=== PATIENT | female | born 1955 | race Caucasian/White ===

== ENCOUNTER 2021-08-20 13:48 | Emergency (ER) | payer OTHER ==
[~2021-08-20] VITALS: Ht 147.3 cm; Wt 54.0 kg
[2021-08-20 14:22] LABS: HEMATOCRIT 42.4 % (37.0-47.0); HEMOGLOBIN 14.5 g/dl (12.0-16.0); IMMATURE GRANULOCYTES 0.2 % (0.0-5.0); MEAN CORPUSCULAR HGB 31.5 pG CALC (26.0-32.0); MEAN CORPUSCULAR HGB CONC 34.2 g/dL CAL (32.0-36.0); NEUT# 2.88 thou/uL (2.00-7.15); RED BLOOD COUNT 4.61 mill/uL (4.20-5.60); RED CELL DISTRI WIDTH 13.1 % (11.5-15.5)
[2021-08-20 14:44] LABS: ALBUMIN 4.2 g/dL (3.2-5.0); ALKALINE PHOSPHATASE 68 u/l (38-126); ANION GAP 8 (6-22 (CALC)); BILIRUBIN, TOTAL 0.2 mg/dL (0.0-1.4); BUN 11 mg/dL (8-23); BUN/CREATININE RATIO 16 (12-20 (CALC)); CARBON DIOXIDE 30 mmol/l (22-30); CHLORIDE 108 mmol/l (95-108); CREATININE 0.7 mg/dL (0.5-1.0); GFR > 60 ML/MIN (>=60 (CALC)); GFR FOR AFR.AMER. > 60 ML/MIN (>=60 (CALC)); POTASSIUM 3.7 mmol/l (3.5-5.1); SGOT/AST 21 u/l (9-36); SODIUM 142 mmol/l (137-146)
[2021-08-20 14:56] LABS: MYOGLOBIN 23 ng/mL (0 - 62)
[2021-08-20 15:01] LABS: URINE BILIRUBIN - DIPSTICK NEGATIVE (NEGATIVE); URINE BLOOD DIPSTICK TRACE-INTACT (NEGATIVE); URINE COLOR YELLOW; URINE GLUCOSE - DIPSTICK NEGATIVE (NEGATIVE); URINE KETONE NEGATIVE (NEGATIVE); URINE LEUK ESTERASE NEGATIVE (NEGATIVE); URINE PROTEIN - DIPSTICK NEGATIVE (NEG-TRACE); URINE UROBILINOGEN - DIPSTICK 0.2 E.U./dL (0.2)
[2021-08-20 15:02] LABS: URINE NITRITE - DIPSTICK NEGATIVE (Negative)
[2021-08-20 16:45] VITALS: BP 147/85
== END 2021-08-20 17:52 | disposition home or self-care (01) ==
LOC: ED 13:48
PROVIDERS: Nurse Practitioner
DX: R07.81 Pleurodynia (principal); I67.1 Cerebral aneurysm, nonruptured; J44.9 Chronic obstructive pulmonary disease, unspecified
CPT/HCPCS: Q9967

== ENCOUNTER 2021-09-24 12:23 | Emergency (ER) | payer OTHER ==
[~2021-09-24] VITALS: Ht 147.3 cm; Wt 60.0 kg
[2021-09-24 12:45] VITALS: BP 140/95
[2021-09-24 13:00] VITALS: BP 149/88
[2021-09-24 13:13] LABS: HEMATOCRIT 40.9 % (37.0-47.0); HEMOGLOBIN 14.3 g/dl (12.0-16.0); IMMATURE GRANULOCYTES 1.2 % (0.0-5.0); MEAN CELL VOLUME 89.3 fL CALC (80.0-100.0); MEAN CORPUSCULAR HGB 31.2 pG CALC (26.0-32.0); NEUT# 4.96 thou/uL (2.00-7.15); RED BLOOD COUNT 4.58 mill/uL (4.20-5.60); RED CELL DISTRI WIDTH 12.7 % (11.5-15.5)
[2021-09-24 13:16] VITALS: BP 103/85
[2021-09-24] MEDS ORDERED: LIPITOR10 M1 PO (13:17)
[2021-09-24] MEDS ORDERED: FLONASE AL50 MCG/ACT (13:17)
[2021-09-24] MEDS ORDERED: ASPIRIN81 MG PO (13:17)
[2021-09-24] MEDS ORDERED: [UNRECOGNIZED DRUG - OTHER] PO (13:18)
[2021-09-24] MEDS ORDERED: LEVETIRACETAM500 M1 PO (13:18)
[2021-09-24] MEDS ORDERED: LEVOCETIRIZINE D5 MG (13:18)
[2021-09-24] MEDS ORDERED: MIRTAZAPINE15 MG PO (13:19)
[2021-09-24] MEDS ORDERED: NURTEC75 MG (13:19)
[2021-09-24] MEDS ORDERED: MONTELUKAST SOD10 MG PO (13:19)
[2021-09-24] MEDS ORDERED: OMEPRAZOLE DR20 MG (13:19)
[2021-09-24] MEDS ORDERED: PLAVIX75 MG PO (13:20)
[2021-09-24] MEDS ORDERED: TRAZODONE50 MG PO (13:20)
[2021-09-24] MEDS ORDERED: PROAIR DIG108 MCG/AC (13:20)
[2021-09-24] MEDS ORDERED: PERCOCET 10/31 COMBO PO (13:20)
[2021-09-24] MEDS ORDERED: SINGULAIR10 MG PO (13:20)
[2021-09-24 13:30] VITALS: BP 120/83
[2021-09-24 13:35] LABS: ALBUMIN 4.6 g/dL (3.2-5.0); ALKALINE PHOSPHATASE 69 u/l (38-126); BUN 13 mg/dL (8-23); BUN/CREATININE RATIO 18 (12-20 (CALC)); CHLORIDE 104 mmol/l (95-108); CREATININE 0.7 mg/dL (0.5-1.0); GFR > 60 ML/MIN (>=60 (CALC)); GFR FOR AFR.AMER. > 60 ML/MIN (>=60 (CALC)); SGOT/AST 15 u/l (9-36); SODIUM 140 mmol/l (137-146); TOTAL PROTEIN 7.6 g/dL (6.3-8.2)
[2021-09-24 13:36] LABS: ANION GAP 16 (6-22 (CALC)); BILIRUBIN, TOTAL 0.3 mg/dL (0.0-1.4); CARBON DIOXIDE 23 mmol/l (22-30); POTASSIUM 2.9 mmol/l (3.5-5.1)
[2021-09-24 14:00] VITALS: BP 113/79
[2021-09-24 14:14] LABS: URINE BLOOD DIPSTICK TRACE-INTACT (NEGATIVE); URINE COLOR YELLOW; URINE GLUCOSE - DIPSTICK NEGATIVE (NEGATIVE); URINE KETONE >=80 mg/dL (NEGATIVE); URINE LEUK ESTERASE NEGATIVE (NEGATIVE); URINE PH 5.5 (4.5-8.0); URINE PROTEIN - DIPSTICK TRACE mg/dL (NEG-TRACE); URINE SPECIFIC GRAVITY >=1.030; URINE UROBILINOGEN - DIPSTICK 0.2 E.U./dL (0.2)
[2021-09-24 14:18] LABS: URINE BILIRUBIN - DIPSTICK NEGATIVE (NEGATIVE); URINE NITRITE - DIPSTICK NEGATIVE (Negative)
[2021-09-24] MEDS ORDERED: ONDANSETRON4 MG PO (15:31)
[2021-09-24] MEDS ORDERED: NAPROXEN500 MG PO (15:34)
[2021-09-24 16:48] VITALS: BP 113/79
== END 2021-09-24 16:48 | disposition home or self-care (01) ==
LOC: ED 12:23
PROVIDERS: Nurse Practitioner
DX: G43.909 Migraine, unspecified, not intractable, without status migrainosus (principal); E87.6 Hypokalemia; G89.4 Chronic pain syndrome; Z86.79 Personal history of other diseases of the circulatory system; Z98.890 Other specified postprocedural states
CPT/HCPCS: Q9967